=== PATIENT | male | born 1990 | race African-American/Black ===

== ENCOUNTER 2021-09-26 16:56 | Emergency (ER) | payer OTHER, SELFPAY ==
[2021-09-26 17:04] VITALS: BP 138/96; PULSE 93; RESP 14; TEMP 37.3; O2SAT 98
--- NOTE | 2021-09-26 17:08 | ED.LOWEXIN ---
HPI - Extremity Injury (Lower) General Chief Complaint: Extremity Injury, Lower Stated Complaint: left knee pain Time Seen by Provider: 09/26/21 17:26 Source: patient and RN notes reviewed Mode of arrival: ambulatory Limitations: no limitations History of Present Illness HPI Narrative: 30-year-old male presents with concern for left knee pain. Reports at work yesterday he was kneeling often, denies any pain at that time. Reports he woke up this morning with pain and it was hard to bear weight. Reports he used ibuprofen and an Kennedy wrap and the pain improved. Reports he still has mild pain. Reports he missed work and needs a work note. He denies decree strength, sensation, range of motion in the extremity MD complaint: knee injury Related Data Home Medications Medication Instructions Recorded Confirmed escitalopram oxalate 10 mg PO DAILY 09/26/21 09/26/21 hydrochlorothiazide 25 mg PO DAILY 09/26/21 09/26/21 lisinopril 10 mg PO DAILY 09/26/21 09/26/21 losartan 25 mg PO DAILY 09/26/21 09/26/21 potassium chloride 10 meq PO DAILY 09/26/21 09/26/21 Allergies Allergy/AdvReac Type Severity Reaction Status Date / Time No Known Allergies Allergy Unverified 01/04/15 13:36 Review of Systems Review of Systems: CONSTITUTIONAL: Denies malaise, chills, sweats, or fever. SKIN: Denies rash or itching, open skin, laceration, abrasion, redness, warmth MUSCULOSKELETAL: Reports left knee pain NEUROLOGIC: Denies numbness, weakness All systems reviewed & are unremarkable except as noted in HPI and below PMFSH Comments At time of signature, agree with nursing past medical, surgical, social and family history. There is no relevant family history pertinent to the presenting complaint Exam Narrative: GENERAL: Well-appearing, well-nourished, and in no acute distress. HEAD: Normocephalic, atraumatic. EYES: PERRLA, conjunctivae clear NECK: Supple. CHEST: Speaks in full sentences. No respiratory distress. HEART: Regular rate and rhythm. Normal and equal peripheral pulses. EXTREMITIES: Left knee pain has normal strength and sensation, normal range of motion. No edema or ecchymosis. 5/5 strength with extremity flexion and extension. Normal sensation with sensitivity to light touch and pain. No point tenderness. No open wounds, no skin tenting, no devitalized tissue or atrophy, no trophic changes, no obvious deformity, alignment normal, nearby joints and structures intact. Distal pulses palpable and equal bilaterally, skin warm, dry, pink. Capillary refill less than 3 seconds. SKIN: Warm, dry, no rash. NEURO: Alert and oriented x3. PSYCH: Normal mood and affect Course Course Emergency Course: Patient is aware of diagnosis, understands and agrees to treatment plan. Anticipatory guidance given. Patient agrees to follow-up as directed and is aware of reasons to seek care at the emergency department. Portions of this record may have been created with voice recognition software Level of Care: Express Care Visit Vital Signs Vital signs: Reviewed. Patient has history of hypertension MDM - Extremity Injury (Lower) MDM Narrative Medical decision making narrative: Patients injury and pain is consistent with musculoskeletal etiology. No signs of neurological or vascular compromise on exam. Compartments and tissues are soft without signs of compartment syndrome. Pain is felt appropriate for further evaluation on an outpatient basis. Critical Care Time Critical Care Time Critical Care Time: No Discharge Plan Discharge Clinical Impression: Acute knee pain Qualifiers: Laterality: left Qualified Code(s): M25.562 - Pain in left knee Patient Disposition: Home, Self-Care Condition: Stable Instructions: Knee Pain (ED) Additional Instructions: Avoid activities that cause pain until the pain subsides. Ice to the area 20-30 minutes 4-6 times a day Elevate above heart Elastic wrap as directed for comfort for the next 5-7 days Tylenol for le
== END 2021-09-26 17:43 | disposition home or self-care (01) ==
PROVIDERS: Emergency Provider Nurse Practitioner; PCP Nurse Practitioner Family
DX: M25.562 Pain in left knee (principal); I10 Essential (primary) hypertension; F41.9 Anxiety disorder, unspecified; F32.A Depression, unspecified
CPT/HCPCS: 99212; G0463

== ENCOUNTER 2024-01-16 09:47 | Emergency (ER) | payer OTHER, SELFPAY ==
[2024-01-16 10:01] VITALS: BP 123/90; PULSE 107; RESP 16; TEMP 36.7; O2SAT 99
--- NOTE | 2024-01-16 10:17 | ED.GENADULT ---
HPI - General Adult General Chief complaint: Extremity Injury, Upper Stated complaint: Right shoulder pain Time Seen by Provider: 01/16/24 10:18 Source: patient, RN notes reviewed and old records reviewed Mode of arrival: ambulatory Limitations: no limitations History of Present Illness HPI narrative: 33 year old male presents to [facility] with complaints of right shoulder pain for the past 1-2 weeks. Patient reports that he did lift a couch to put iit in a dumpster and he does do a lot of overhead repetitive motion at work. Patient reports that pain is in the anterior aspect of his right shoulder denies any radiation of pain to his upper arm but is unable to fully raise his right arm upward. Patient denies any tingling or numbness to his right ally has strong pulses to right arm. Patient reports that he has been taking Ibuprofen and using Biofreeze to his shoulder area. Patient reports that he no longer has to take his blood pressure medication since he quit drinking alcohol. MD complaint: right shoulder Onset (ago): week(s) (1-2) Location: right and upper extremity Severity scale (1-10): 7 Quality: aching Pain Consistency: constant Treatments prior to arrival: NSAID and other (Biofreeze) Related Data Home Medications Medication Instructions Recorded Confirmed escitalopram oxalate 10 mg tablet 10 mg PO DAILY 09/26/21 09/26/21 potassium chloride 10 mEq 10 meq PO DAILY 09/26/21 09/26/21 tablet,extended release Allergies Allergy/AdvReac Type Severity Reaction Status Date / Time No Known Allergies Allergy Unverified 01/16/24 10:10 Review of Systems Review of Systems: CONSTITUTIONAL: Denies fever, chills, or sweats. EYES: Denies visual changes, redness, or discharge. ENT: Denies rhinorrhea, congestion, sore throat, or otalgia. CARDIOVASCULAR: Denies chest pain, palpitations, or edema. RESPIRATORY: Denies cough or dyspnea. GASTROINTESTINAL: Denies abdominal pain, nausea, vomiting, or diarrhea. GENITOURINARY: Denies dysuria or hematuria. SKIN: Denies rash or itching. MUSCULOSKELETAL: Denies back pain,positive for his right shoulder pain , or myalgia. NEUROLOGIC: Denies headache, numbness, or weakness. PSYCHIATRIC: positive for history of anxiety or depression. All systems reviewed & are unremarkable except as noted in HPI and below PMFSH Past Medical History Medical History (Updated 01/17/24 @ 21:31 by Cassidy Herbert NP) Anxiety and depression Hypertension Social History Social History (Updated 01/17/24 @ 21:24 by Cassidy Herbert NP) Smoking status: Former smoker Alcohol intake: former Substance use type: does not use Living arrangements: with family Gender identity (if verbalized by the patient): Male Comments At time of signature, agree with nursing past medical, surgical, social and family history. There is no relevant family history pertinent to the presenting complaint Exam Narrative: GENERAL: Well-appearing, well-nourished, and in no acute distress. HEAD: Normocephalic, atraumatic. EYES: PERRLA and EOMI. ENT: Nares clear, no rhinorrhea or epistaxis. Mucous membranes moist. NECK: Supple.no lymphadenopathy CHEST: Clear to auscultation. No respiratory distress.SAO2 99% on room air HEART: Regular rate and rhythm. No murmur heard. Normal peripheral pulses. ABDOMEN: Soft, nontender, nondistended, normal active bowel sounds. EXTREMITIES: Normal range of motion. No edema.Exception noted to anterior right shoulder pain with difficulty raising his right arm, strong pulses to his his right arm, denies any tingling or numbness of right arm or hand, strong equal hand train brakeman. SKIN: Warm, dry, no rash. NEURO: No focal deficits. Alert and oriented x3. Course Course Emergency Course: Patient is aware of diagnosis, understands and agrees to treatment plan.? Anticipatory guidance given.? Patient agrees to follow-up as directed and is aware of reasons to seek care at the emergency department.
== END 2024-01-16 10:44 | disposition home or self-care (01) ==
PROVIDERS: Emergency Provider Registered Nurse; PCP Nurse Practitioner Family
DX: S43.401A Unspecified sprain of right shoulder joint, initial encounter (principal); X50.0XXA Overexertion from strenuous movement or load, initial encounter; F41.8 Other specified anxiety disorders; I10 Essential (primary) hypertension; Z87.891 Personal history of nicotine dependence
CPT/HCPCS: 99213; G0463